=== PATIENT | female | born 1940 | race Caucasian/White ===

== ENCOUNTER → 2017-05-17 | Outpatient (CLI) | payer OTHER ==
[2017-05-17 16:11] LABS: ABSOLUTE NEUTROPHILS 5.3 thou/uL (1.4-8.2); BASOPHILS 0.7 % (0.0-2.0); EOSINOPHILS 0.9 % (0.0-3.0); HEMATOCRIT 38.9 % (37.0-47.0); HEMOGLOBIN 13.3 gm/dL (12.0-15.0); LYMPHOCYTES 24.7 % (24.0-44.0); MANUAL DIFF NO; MCH 31.1 pg (26.0-34.0); MCV 91.3 fL (80.0-100.0); MONOCYTES 8.3 % (1.0-8.0); PLATELET COUNT 292 thou/uL (150-400); POLYS 65.4 % (36.0-66.0); RBC 4.26 mil/uL (4.20-5.00); RDW 13.8 % (10.5-14.5); WBC 8.1 thou/uL (4.0-11.0)
[2017-05-17 16:23] LABS: ALBUMIN 4.4 g/dL (3.4-5.0); ALKALINE PHOSPHATASE 76 U/L (46-116); ANION GAP 12 mmol/L (7-16); BUN 39 mg/dL (7-18); CHLORIDE 102 mmol/L (98-107); CHOLESTEROL 193 mg/dL (<200); CO2 25 mmol/L (21-32); CREATININE 1.4 mg/dL (0.6-1.0); GLUCOSE 105 mg/dL (74-106); HDL CHOLESTEROL 68 mg/dL (>40); LDL CHOLESTEROL 93 mg/dL (<100); POTASSIUM 4.5 mmol/L (3.5-5.1); SGOT 17 U/L (15-37); SGPT 31 U/L (30-65); SODIUM 139 mmol/L (136-145); TC:HDL 2.8 Ratio (Not establshd); TOTAL PROTEIN 8.4 g/dL (6.4-8.2); TRIGLYCERIDE 161 mg/dL (<150); VLDL 32 mg/dL (<40)
[2017-05-18 04:07] LABS: GLYCOHEMOGLOBIN (HGB A1C) 5.7 % (4.8-5.6)
== END ==
LOC: LAB 15:10
PROVIDERS: Nurse Practitioner Gerontology
DX: I10 Essential (primary) hypertension (principal); E11.9 Type 2 diabetes mellitus without complications; E78.5 Hyperlipidemia, unspecified; F41.9 Anxiety disorder, unspecified; R63.5 Abnormal weight gain

== ENCOUNTER → 2017-10-14 | Outpatient (CLI) | payer OTHER | LOC: SEN 09:11 → RAD 10:09 → SEN 10:09 | DX: I77.810 Thoracic aortic ectasia (principal); J18.9 Pneumonia, unspecified organism ==

== ENCOUNTER → 2018-07-27 | Outpatient (CLI) | payer OTHER ==
[~2018-07-27] MED LIST: CIPRO250 M1 PO; LIPITOR 20 MG T20 M1 PO; MAGOX 400400 MG PO; PRILOSEC 20 MG20 MG PO; SPIRONOLACTONE25 M1 PO; XANAX 0.5 MG0.5 MG PO
[2018-07-27 11:09] LABS: URINE BLOOD NEGATIVE (Negative); URINE CLARITY CLEAR; URINE COLOR YELLOW; URINE GLUCOSE-RANDOM* NEGATIVE (Negative); URINE KETONES NEGATIVE (Negative); URINE LEUKOCYTES-REFLEX NEGATIVE (Negative); URINE NITRITE-REFLEX NEGATIVE (Negative); URINE PROTEIN (DIPSTICK) NEGATIVE (Negative); URINE SPECIFIC GRAVITY 1.025 (1.005-1.035); URINE UROBILINOGEN 0.2 E.U./dl (0.2-1.0)
[2018-07-27 11:12] LABS: ICTOTEST (BILI CONFIRMATORY) Negative (Negative); URINE BILIRUBIN NEGATIVE (Negative)
== END ==
LOC: SEN 10:43
PROVIDERS: Nurse Practitioner Family
DX: N39.0 Urinary tract infection, site not specified (principal)

== ENCOUNTER → 2018-07-29 | Outpatient (CLI) | payer OTHER ==
[2018-07-29 14:21] VITALS: BP 139/66
== END ==
LOC: SEN 08:12
DX: Z09 Encounter for follow-up examination after completed treatment for conditions other than malignant neoplasm (principal); R30.9 Painful micturition, unspecified; I10 Essential (primary) hypertension; M81.0 Age-related osteoporosis without current pathological fracture

== ENCOUNTER → 2018-10-28 | Outpatient (CLI) | payer OTHER | LOC: RAD 10:59 | DX: Z12.31 Encounter for screening mammogram for malignant neoplasm of breast (principal) ==

== ENCOUNTER → 2019-02-20 | Outpatient (CLI) | payer OTHER | LOC: SEN 08:37 | DX: Z76.0 Encounter for issue of repeat prescription (principal); R03.0 Elevated blood-pressure reading, without diagnosis of hypertension; E83.42 Hypomagnesemia; E78.5 Hyperlipidemia, unspecified; M81.0 Age-related osteoporosis without current pathological fracture; K21.9 Gastro-esophageal reflux disease without esophagitis; E78.00 Pure hypercholesterolemia, unspecified; I10 Essential (primary) hypertension; Z79.899 Other long term (current) drug therapy; Z87.891 Personal history of nicotine dependence ==

== ENCOUNTER → 2019-02-22 | Outpatient (CLI) | payer OTHER | LOC: NUC 09:47 | DX: M81.0 Age-related osteoporosis without current pathological fracture (principal); M85.89 Other specified disorders of bone density and structure, multiple sites; Z78.0 Asymptomatic menopausal state ==

== ENCOUNTER → 2019-03-20 | Outpatient (CLI) | payer OTHER | LOC: SEN 10-27 09:56 | DX: Z71.2 Person consulting for explanation of examination or test findings (principal); I10 Essential (primary) hypertension; E78.1 Pure hyperglyceridemia; M85.80 Other specified disorders of bone density and structure, unspecified site; K22.70 Barrett's esophagus without dysplasia; E78.00 Pure hypercholesterolemia, unspecified; K21.9 Gastro-esophageal reflux disease without esophagitis; Z87.891 Personal history of nicotine dependence ==

== ENCOUNTER → 2019-10-20 | Outpatient (CLI) | payer OTHER | LOC: RAD 10:53 | DX: Z12.31 Encounter for screening mammogram for malignant neoplasm of breast (principal) ==

== ENCOUNTER 2020-03-17 15:09 | Inpatient (IN) | payer OTHER ==
[~2020-03-17] VITALS: Ht 162.6 cm; Wt 80.7 kg
[2020-03-17 15:20] VITALS: BP 125/79
[2020-03-17 16:16] LABS: ABSOLUTE NEUTROPHILS 9.9 thou/uL (1.4-8.2); BASOPHILS 0.2 % (0.0-2.0); EOSINOPHILS 0.2 % (0.0-3.0); HEMATOCRIT 39.4 % (37.0-47.0); HEMOGLOBIN 13.3 gm/dL (12.0-15.0); LYMPHOCYTES 13.1 % (24.0-44.0); MCHC 33.8 g/dL (28.0-37.0); MCV 94.6 fL (80.0-100.0); MONOCYTES 9.7 % (1.0-8.0); PLATELET COUNT 523 thou/uL (150-400); POLYS 76.8 % (36.0-66.0); RBC 4.16 mil/uL (4.20-5.00); RDW 13.5 % (10.5-14.5); WBC 12.9 thou/uL (4.0-11.0)
[2020-03-17 16:22] LABS: ANION GAP 12 mmol/L (7-16); BUN 35 mg/dL (7-18); CALCIUM 8.9 mg/dL (8.5-10.1); CHLORIDE 96 mmol/L (98-107); CO2 24 mmol/L (21-32); CREATININE 1.2 mg/dL (0.6-1.0); GLUCOSE 138 mg/dL (74-106); POTASSIUM 3.5 mmol/L (3.5-5.1); SODIUM 132 mmol/L (136-145)
[2020-03-17 16:32] LABS: ALBUMIN 3.2 g/dL (3.4-5.0); LIPASE 160 U/L (73-393); MAGNESIUM 1.6 mg/dL (1.8-2.4); SGOT 25 U/L (15-37); SGPT 46 U/L (30-65); TOTAL BILIRUBIN 1.4 mg/dL (<0.1-1.0); TOTAL PROTEIN 6.7 g/dL (6.4-8.2); TROPONIN-I <0.06 ng/mL (<0.06)
[2020-03-17] MEDS ORDERED: ROSUVASTATIN CA10 MG PO (17:41)
[2020-03-17] MEDS ORDERED: ZESTRIL40 MG PO (17:42)
[2020-03-17 19:35] VITALS: BP 130/56
[2020-03-17 20:03] LABS: URINE BILIRUBIN NEGATIVE (Negative); URINE BLOOD 1+ (Negative); URINE CLARITY SL CLOUDY; URINE COLOR YELLOW; URINE GLUCOSE-RANDOM* NEGATIVE (Negative); URINE KETONES TRACE (Negative); URINE PROTEIN (DIPSTICK) NEGATIVE (Negative); URINE SPECIFIC GRAVITY 1.025 (1.005-1.035)
[2020-03-17 20:09] LABS: URINE LEUKOCYTES-REFLEX 1+ (Negative); URINE NITRITE-REFLEX POSITIVE (Negative)
[2020-03-17 20:11] LABS: BACTERIA-REFLEX >30 Many /HPF (None Seen); CASTS None Seen /LPF (None Seen); CRYSTALS None Seen /LPF (None Seen); MUCUS 0-3 Light strn/LPF (None Seen); SQUAMOUS 0-3 Few /LPF (0-3); URINE RBC 3-10 Few /HPF (0-2)
[2020-03-17 20:20] VITALS: BP 140/73
[2020-03-17 22:07] VITALS: BP 107/61
--- NOTE | 2020-03-18 02:43 | NUR ---
PT ARRIVED ON THE UNIT FROM ER @2200 A&OX4. HAS POOR APPETITE, DEHYDRATED AND HAS BEEN EATING POORLY FOR WEEKS. IV INTACT AND FLIUDS INFUISING. ADMISSION DONE AND PT ORIENTED TO THE UNIT. MILD ABDOMINAL DISCOMFORT BUT DENIES PAIN. PT NPO AFTER MIDNIGHT. CALL LIGHT IN REACH AND WILL CONT TO MONITOR TILL EOS.
[2020-03-18 03:40] VITALS: BP 133/63
[2020-03-18 06:01] LABS: HEMATOCRIT 33.9 % (37.0-47.0); HEMOGLOBIN 11.6 gm/dL (12.0-15.0); MCH 32.7 pg (26.0-34.0); MCHC 34.2 g/dL (28.0-37.0); MCV 95.6 fL (80.0-100.0); RBC 3.55 mil/uL (4.20-5.00); RDW 13.5 % (10.5-14.5); WBC 9.5 thou/uL (4.0-11.0)
[2020-03-18 06:24] LABS: CHOLESTEROL 137 mg/dL (<200); HDL CHOLESTEROL 31 mg/dL (>40); LDL CHOLESTEROL 82 mg/dL (<100); TC:HDL 4.4 Ratio (Not establshd); TRIGLYCERIDE 124 mg/dL (<150); VLDL 25 mg/dL (<40)
[2020-03-18 06:25] LABS: SERUM ASSESSMENT Clear
[2020-03-18 07:56] VITALS: BP 130/71
--- NOTE | 2020-03-18 08:39 | EKG ---
[facility] [place] [address] ELECTROCARDIOGRAM REPORT Name: LASHANDA PATEL Room #: 434-P ADM IN M.R.#: [id number] Admission: 03/17/20 Attend Phys: Pastor Johnson MD Discharge: Date of : 40 Report #: [id number] THIS REPORT FOR: cc: Stella Velásquez DNP, Mary E. DNP Lundgren, Craig H. MD [facility] ~ THIS REPORT FOR: //name// [facility] ED Test Date: 2020-03-17 Test Time: 15:23:18 Pat Name: LASHANDA PATEL Department: Room: 434 Gender: F Principal Secretary: JAEL : 1940 Requested By: Glenda López Order Number: [id number] MD: Moisés Marie Measurements Intervals [place] Rate: 93 P: 52 CT: 166 QRS: 9 QRSD: 80 T: 127 QT: 358 QTc: 446 Interpretive Statements Sinus rhythm Abnormal R-wave progression, early transition Nonspecific ST segment abnormality Compared to ECG 02/25/2006 10:17:07 ST segment abnormality is more pronounced Sinus bradycardia no longer present Electronically Signed On 03-18-2020 8:38:03 CDT by Moisés Marie [email or web address] <ELECTRONICALLY SIGNED> By: Moisés Marie MD, [facility] 03/18/20 0838 1523 1523 Moisés Marie MD, FAC /EPI
[2020-03-18 10:57] LABS: CALCIUM 8.6 mg/dL (8.5-10.1); CREATININE 1.1 mg/dL (0.6-1.0); POTASSIUM 3.9 mmol/L (3.5-5.1)
--- NOTE | 2020-03-18 11:40 | NUR ---
chart review. cm visited with renee via phone call. she is a & o x 3, preferrs going by conrado and she is able to make her needs know. she was just visiting with romero CASAREZ with GI " oh i hope she comes back soon, she is so nice and easy to talk to. she cares"/conrado. intro to cm, dcp and transition of care ie hh or rehab. pt reported " guess going to get few more test then go home, live alone 1st floor apartment, if have to go outside use elevator to the garage and go out that way. do not drive, take bus or friend drive me some time. most walk. no equip. independent when feeling ok. cook little stuff, laundry room on the same floor. no hh or rehab in past. sandie i guess is who you call if needing somethings, she the one that found me. no dpoa or health care directive and no interested. thank you"/conrado. will cont following as needed for dc needs.
--- NOTE | 2020-03-18 13:30 | NUR ---
ASSUMED CARE OF THE PT AT 0700. PT IS NOT A FALL RISK. PT C/O NOT GETTING THE CORRECT POC INFORMATION. L AC IV DRY AND INTACT. PT IS BS, SEE EMAR. PT WILL HAVE PROCEDURE TOMORROW, SEE SERVANDO, PT TO BE NPO AFTER MIDNIGHT. PT REFUSED SCD'S. LAST BM 03/17. CALL LIGHT ISM WITHIN REACH AND BED IS IN THE LOWEST POSITION. WILL CONTINUE TO MONITOR THE PT.
[2020-03-18 19:20] VITALS: BP 117/58
--- NOTE | 2020-03-18 23:37 | NUR ---
ASSESSED AT START OF SHIFT. PT RESTING IN BED. IV INTACT AND FLUIDS INFUISING. PT ADLIB TO THE BATHROOM. ON CLEAR LIQUIDS AND NPO AFTER MIDNIGHT FOR EGD AND COLONOSCOPY TOMORROW. MIRALAX ADMINISTERED. COVID RESULT NEGATIVE. CALL LIGHT IN REACH AND WILL CONT TO MONITOR TILL EOS.
[2020-03-19 03:25] VITALS: BP 120/64
[2020-03-19 09:07] VITALS: BP 139/58
[2020-03-19 15:00] VITALS: BP 123/63
--- NOTE | 2020-03-19 16:48 | NUR ---
PT NPO THIS AM FOR EGD AND COLONOSCOPY. PT RETURNED AROUND 1400 ALERT AND IN NO DISCOMFORT. CALM AND COOPERATIVE THIS SHIFT. IV ANTIBIOTICS FOR ECOLI UTI. STARTED ON PROTONIX FOR ESOP ULCER. AMBULATES TO THE BR INDEPENDENTLY.
[2020-03-19 19:25] VITALS: BP 113/53
--- NOTE | 2020-03-20 01:02 | NUR ---
ASSESSED AT START OF SHIFT, PT RESTING COMFORTABLY DENIES PAIN, N/V. IV INTACT ABX AND FLUIDS INFUISING. NIGHT TIME XANAX GIVEN. PT UP AD STEFANY TO THE BATHROOM. CALL LIGHT IN REACH AND WILL CONT TO MONITOR
[2020-03-20 03:20] VITALS: BP 189/64
--- NOTE | 2020-03-20 07:43 | NUR ---
PATIENT RESTING IN BED STATES NO PAIN AT THIS TIME. PT IS WORRIED ABOUT WHERE SHE IS DISCHARGING TO. THIS NURSE WILL CHECK WITH ASSISTANT DRAFTER.
[2020-03-20 08:07] VITALS: BP 126/52
[2020-03-20] MEDS ORDERED: B-12500 MCG PO (12:59)
[2020-03-20] MEDS ORDERED: AUGMENTIN 875-1 EACH PO (12:59)
[2020-03-20] MEDS ORDERED: ALPRAZOLAM 0.50.5 M1 PO (12:59)
[2020-03-20] MEDS ORDERED: PANTOPRAZOLE SO40 M1 PO (12:59)
[2020-03-20 13:05] VITALS: BP 126/52
[2020-03-20 13:23] VITALS: BP 126/52
[2020-03-20 13:28] VITALS: BP 126/52
--- NOTE | 2020-03-20 13:35 | NUR ---
CM FOLLOWED UP WITH PT THIS AM. CM SPOKE WITH PT REGARDING DC PLANNING. SPOKE ABOUT SKILLED POST ACUTE VS HOME WITH HOME HEALTH. PT HAD DISCHARGED PT 03/18 INDICATING NO DEFICITS. PT INDICATED SHE WOULD PEFER TO DISCHARGE HOME WITH HOME HEALTH SERVICES. PT INDICATED NO PREFERENCE IN PROVIDER. WAS AGREEABLE WITH REFERRAL BEING SENT TO [facility]. [facility] CAN ACCEPT. CARE TEAM INDICATED PT IS MEDICALLY STABLE TO DC HOME THIS DAY. PT WAS GIVEN CAB VOUCHER. [facility] TO CONTACT PT TO ARRANGE INITIAL VISIT. NO OTHER CM INTERVENTION INDICATED. CASE CLOSED.
--- NOTE | 2020-03-20 14:19 | NUR ---
DISCHARGE PAPERS GONE OVER SIGNED AND COPY IN CHART. IV ACSESS DCD. RX'S FILLED AT [facility] FOR PATIENT. PT TAKEN TO ER/ SECURITY AREA SO CAB COULD BE CALLED.PATIENT WAS GIVEN CAB VOUCHER. ALL BELONGINGS PACKED AND TAKEN WITH PATIENT. NO PAIN OR RESP DISTRESS AT TIME OF DISCHARGE.
--- NOTE | 2020-03-20 16:10 | P ---
[facility] [place] [address] PROCEDURE REPORT Name: LASHANDA PATEL Room #: 434-P [facility] IN M.R.#: [id number] Admission: 03/17/20 Attend Phys: Pastor Johnson MD Discharge: 03/20/20 Date of : 40 Report #: [id number] THIS REPORT FOR: cc: Stella Velásquez DNP, Mary E. DNP Thesing, John A. MD ~ CC: Pastor Velásquez [facility] INPATIENT UPPER ENDOSCOPY BRIEF HISTORY: The patient is a 79-year-old woman with a history of Gonsalez's esophagus. She has had nausea and vomiting. She stopped her PPI several months ago. She has had weight loss and has been eating poorly. PREOPERATIVE DIAGNOSES: Nausea, vomiting, weight loss. POSTOPERATIVE DIAGNOSES: 1. Severe ulceration of the distal esophagus. 2. Moderate sliding type hiatus hernia. 3. Diffuse gastritis. MEDICATIONS: Deep sedation with propofol per Anesthesia. SPECIMENS: 1. Biopsies of gastritis. 2. Biopsies of esophageal ulcers. ESTIMATED BLOOD LOSS: 3 mL. PROCEDURE: EGD with biopsy. FINDINGS: Prior to propofol sedation, procedure of upper endoscopy discussed with the patient as well as potential risks and its complications. The patient understands and desires to proceed. DESCRIPTION OF PROCEDURE: With the patient in left lateral decubitus position, the Olympus video endoscope was inserted in the cervical esophagus under direct vision without difficulty. Examination of this organ through its entire length revealed normal esophageal mucosa in the proximal esophagus distally, involving specifically the distal 10-12 cm of the esophagus, there was extensive circumferential ulceration with white thick exudate. Essentially, there was no mucosa in the distal esophagus. No mass lesions were seen. She has a history of Gonsalez's, but to be honest, there was so much ulceration, we could not appreciate whether Gonsalez mucosa was or was not present. No mass lesions were seen. Multiple biopsies were obtained. The scope was advanced and she has a [facility] [address] [place] [address] PROCEDURE REPORT Name: LASHANDA PATEL Room #: 434-P [facility] IN [facility].#: [id number] Admission: 03/17/20 Attend Phys: Pastor Johnson MD Discharge: 03/20/20 Date of : 40 Report #: [id number] moderate sized sliding type hiatus hernia. Unfortunately, she did not hold the air well and we could not fully distend the hernia, but within these limitations, the mucosa was within normal limits. The scope was advanced fully into the distal stomach, was examined on end view as well as retroflexed views. There was a pattern of diffuse gastritis. No ulcers or erosions were seen. Upon retroflexion, no mass lesions were seen. The pylorus, duodenal bulb and post-coronary sweep were inspected and noted to be unremarkable. At that point, the scope was slowly withdrawn and careful circumferential views confirmed the above finding. Biopsies obtained of the gastritis as well as esophageal ulcer. The patient tolerated the procedure well. DISPOSITION: The patient with extensive ulceration of the esophagus. She stopped her proton pump inhibitor. We will discuss further with her. We will have her take pantoprazole 40 mg twice daily. We will follow up on biopsies. She should have a repeat endoscopy in about 12 weeks after healing esophagitis to further evaluate for Gonsalez's and neoplasia of the esophagus. Proceed with colonoscopy at this time. <ELECTRONICALLY SIGNED> By: Bryon Nugent MD 03/20/20 1610 1218 1247 Bryon Nugent MD /nt
--- NOTE | 2020-03-20 16:10 | P ---
[facility] [place] [address] PROCEDURE REPORT Name: LASHANDA PATEL Room #: 434-P [facility] IN M.R.#: [id number] Admission: 03/17/20 Attend Phys: Pastor Johnson MD Discharge: 03/20/20 Date of : 40 Report #: [id number] THIS REPORT FOR: cc: Stella Velásquez DNP, Mary E. DNP Thesing, John A. MD ~ CC: Pastor Velásquez FALL INTERN DATE OF SERVICE: 03/19/2020 INPATIENT COLONOSCOPY REPORT BRIEF HISTORY: The patient is a 79-year-old woman who presented with generalized weakness, abdominal pain, weight loss. She had a CT, which reveals evidence of a large cavitary lesion along the sigmoid colon. It is not clear whether or not this is a neoplastic or inflammatory process. She has a benign abdomen. Colonoscopy was recommended. PREOPERATIVE DIAGNOSIS: Abnormal CT of the colon associated weight loss. POSTOPERATIVE DIAGNOSES: 1. Diminutive polyp, 70 cm. 2. Patchy areas of diverticulitis, sigmoid colon. 3. Diverticulosis coli, sigmoid colon and descending colon. MEDICATIONS: Deep sedation with propofol per anesthesia. SPECIMEN: Polyp from 70 cm. ESTIMATED BLOOD LOSS: 3 mL. PROCEDURE: Colonoscopy to cecum and terminal ileum with snare polypectomy. FINDINGS: Prior to propofol sedation, procedure of colonoscopy discussed with the patient as well as potential risks and its complications. She indicates she understands and desires to proceed. DESCRIPTION OF PROCEDURE: With the patient in left lateral decubitus position, the Olympus video colonoscope was introduced into the rectum, advanced under direct vision to the cecum. Done with minimal difficulty. Cecum was identified by the ileocecal valve and the appendiceal orifice. I was able to visualize the distal segment of terminal ileum, which was inspected and noted to be unremarkable. At that point, the scope was slowly withdrawn and careful circumferential views were obtained. There were some limitations of prep, [facility] [address] [place] [address] PROCEDURE REPORT Name: LASHANDA PATEL Room #: 434-P [facility] IN [facility].#: [id number] Admission: 03/17/20 Attend Phys: Pastor Johnson MD Discharge: 03/20/20 Date of : 40 Report #: [id number] scattered throughout the colon. Areas had to be irrigated, lavaged and suctioned to clear up this material. No abnormalities were noted until the left colon was reached, at which point there was noted to be diverticulosis coli to a moderate degree. No further abnormalities were noted until we got into the sigmoid colon. In the mid sigmoid colon, there was moderately severe diverticular disease. There was some luminal narrowing, but no stricturing. In addition, there were at least 2 diverticula with inflammatory changes and one with purulent material. Extensive diverticulitis was not seen. Also, no neoplastic lesions were seen in the sigmoid colon. A cavitary lesion was not seen. It is possible there could be a giant diverticulum or an abscess cavity, which drains to one of the diverticula, but that was not obvious at this time. The scope was further withdrawn, no additional abnormalities were seen. Scope was withdrawn. The patient tolerated the procedure well. DISPOSITION: She had a small polyp identified and removed by snare polypectomy at 70 cm. We will follow up on the pathology. If the polyp is an adenoma, she will return in 5 years; if it is not an adenoma, then 10 years would be indicated. She clearly does have evidence of diverticulitis, but not extensive colonoscopy. It is noted she is on Zosyn at this point in time and would continue at this point. As far as the cavitary lesion, that cannot be clearly identified endoscopically today. Several possibilities include a cavitary lesion related to some other structure within the pelvis. She could have a giant diverticulum, which is not noted endoscopically because the diverticulum feeding that area is not large enough to allow visualization with the scope. It is also possible she could have had a diverticular abscess, which is potentially drained through diverticulum, but is not obvious endoscopic at this point in time. At this point, would continue Zosyn. We will review CT with radiologist and confirmed with endoscopic findings. She will certainly need further evaluation, potentially repeating the CT. Also, repeating a CT with contrast instilled in the distal colon may be helpful as well. <ELECTRONICALLY SIGNED> By: Bryon Nugent MD 03/20/20 1610 1254 1313 Bryon Nugent MD /nt
--- NOTE | 2020-03-21 13:08 | PATH ---
[facility] [place] [address] PATHOLOGY RPT PROCEDURE Name: ZONIA HERNANDEZ Room #: 434-P [facility] IN M.R.#: [id number] Admission: 03/17/20 Date of : 40 Discharge: 03/20/20 Report #: [id number] Path Case #: [id number] [facility] Accession Number: [id number] . 01 Material submitted: . PART A: stomach - BIOPSY OF GASTRITIS PART B: esophagus - BIOPSY OF ESOPHAGEAL ULCER, HX OF RODAS'S PART C: colon - POLYP AT 70CM . 01 Clinical history: . Pre-op diagnosis: Abnormal CT; nausea; vomiting Post-op diagnosis: Weight loss; history of Rodas's esophagus . 02 Diagnosis: A. Gastric mucosa, gastritis, rule out H. pylori, endoscopic biopsy: - Mild chronic inflammation. - Negative for intestinal metaplasia or atrophy. - Negative for Helicobacter pylori (properly-controlled immunohistochemical stain performed). . B. Gastroesophageal mucosa, esophageal ulcer, history of Rodas's, endoscopic biopsy: - Multiple fragments of ulcer and granulation tissue. 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 - Negative for dysplasia or malignancy. - Focal squamous mucosa present showing mild esophagitis. . C. Polyp, at 70 cm, endoscopic biopsy: - Tubular adenoma. - Negative for high grade dysplasia. . (IUV:mml; 03/21/2020) [facility] 03/21/2020 1130 Local . 02 Electronically signed: . Queta Vera MD, Pathologist NPI- [id number] . 01 Gross description: . A. The specimen is received in formalin, labeled "Zonia Hernandez, biopsy of gastritis". Received are two segments of pale gonsales soft tissue ranging in size from 0.4 to 0.6 cm in maximum dimensions. The specimen is submitted entirely in cassette A1. . B. The specimen is received in formalin, labeled "Zonia Hernandez, biopsy of esophageal ulcer". Received are eight segments of pale gonsales soft tissue [address] [address] PATHOLOGY RPT PROCEDURE Name: ZONIA HERNANDEZ Room #: 434-P DIS IN M.R.#: [id number] Admission: 03/17/20 Date of : 40 Discharge: 03/20/20 Report #: [id number] Path Case #: [id number] ranging in size from 0.3 to 0.6 cm in maximum dimensions. The specimen is submitted entirely in cassette B1. . C. The specimen is received in formalin, labeled "Zonia Stepien, polyp at 70 cm". Received is a segment of pale gonsales soft tissue measuring 0.7 cm in maximum dimensions. The specimen is submitted entirely in cassette C1. (CAA; 03/20/2020) QAC/QAC 03/20/2020 1257 Local . 02 Pathologist provided ICD-10: K29.50, K22.70, D12.6 . 02 CPT . 198389, 699626, 150321, V79061 Specimen Comment: A courtesy copy of this report has been sent to [phone] Specimen Comment: [phone], Specimen Comment: Report sent to ,DR PATEL / DR MENJIVAR Performed at: [address], [place] [id number] MD Philip Khoury MD Phone: [phone] Performed at: [address] [id number] MD Queta Vera MD Phone: [phone]
== END 2020-03-20 14:26 | disposition home health service (06) | DRG 391 ==
LOC: ER 15:09 → 4S 18:31 → EROBS 18:31 → 4S 22:08
PROVIDERS: Emergency Medicine Emergency Medical Services; Nurse Practitioner Family; ADMIT Hospitalist
PROC: 0DBE8ZZ Excision of Large Intestine, Via Natural or Artificial Opening Endoscopic (ICD-10-PCS; principal; 2020-03-19)
PROC: 0DB38ZX Excision of Lower Esophagus, Via Natural or Artificial Opening Endoscopic, Diagnostic (ICD-10-PCS; principal; 2020-03-19)
PROC: 0DB68ZX Excision of Stomach, Via Natural or Artificial Opening Endoscopic, Diagnostic (ICD-10-PCS; principal; 2020-03-19)
DX: K29.70 Gastritis, unspecified, without bleeding (principal); G93.41 Metabolic encephalopathy; N17.9 Acute kidney failure, unspecified; N39.0 Urinary tract infection, site not specified; K57.32 Diverticulitis of large intestine without perforation or abscess without bleeding; K57.30 Diverticulosis of large intestine without perforation or abscess without bleeding; K22.70 Barrett's esophagus without dysplasia; K21.9 Gastro-esophageal reflux disease without esophagitis; I10 Essential (primary) hypertension; K63.5 Polyp of colon; Z60.2 Problems related to living alone; F32.9 Major depressive disorder, single episode, unspecified; G47.00 Insomnia, unspecified; E53.8 Deficiency of other specified B group vitamins; F03.90 Unspecified dementia, unspecified severity, without behavioral disturbance, psychotic disturbance, mood disturbance, and anxiety; E78.5 Hyperlipidemia, unspecified; B96.20 Unspecified Escherichia coli [E. coli] as the cause of diseases classified elsewhere; F41.9 Anxiety disorder, unspecified; M81.0 Age-related osteoporosis without current pathological fracture; E83.42 Hypomagnesemia; E86.0 Dehydration; K44.9 Diaphragmatic hernia without obstruction or gangrene; R63.4 Abnormal weight loss; Z79.899 Other long term (current) drug therapy; Z87.891 Personal history of nicotine dependence; Z68.30 Body mass index [BMI] 30.0-30.9, adult; Z03.818 Encounter for observation for suspected exposure to other biological agents ruled out
CPT/HCPCS: 10195; 62110; 62900; 70005

== ENCOUNTER 2020-04-01 14:20 | Inpatient (IN) | payer OTHER ==
[~2020-04-01] VITALS: Ht 160 cm; Wt 83.5 kg
[~2020-04-01 14:20] MED LIST changes: +ALPRAZOLAM 0.50.5 M1 PO; +AUGMENTIN 875-1 EACH PO; +B-12500 MCG PO; +PANTOPRAZOLE SO40 M1 PO; +ROSUVASTATIN CA10 MG PO; +ZESTRIL40 MG PO
[2020-04-01 14:21] VITALS: BP 90/38
[2020-04-01 14:41] LABS: ABSOLUTE NEUTROPHILS 2.9 thou/uL (1.4-8.2); EOSINOPHILS 0.6 % (0.0-3.0); HEMATOCRIT 30.4 % (37.0-47.0); HEMOGLOBIN 10.4 gm/dL (12.0-15.0); LYMPHOCYTES 24.4 % (24.0-44.0); MCH 32.4 pg (26.0-34.0); MCHC 34.3 g/dL (28.0-37.0); MCV 94.5 fL (80.0-100.0); MONOCYTES 11.3 % (1.0-8.0); PLATELET COUNT 210 thou/uL (150-400); POLYS 62.7 % (36.0-66.0); RBC 3.22 mil/uL (4.20-5.00); RDW 13.6 % (10.5-14.5); WBC 4.6 thou/uL (4.0-11.0)
[2020-04-01 15:00] LABS: ALBUMIN 2.9 g/dL (3.4-5.0); ANION GAP 11 mmol/L (7-16); BUN 11 mg/dL (7-18); CHLORIDE 101 mmol/L (98-107); CO2 29 mmol/L (21-32); CREATININE 1.8 mg/dL (0.6-1.0); GLUCOSE 115 mg/dL (74-106); LIPASE 116 U/L (73-393); SGOT 22 U/L (15-37); SGPT 28 U/L (30-65); SODIUM 141 mmol/L (136-145); TOTAL BILIRUBIN 1.1 mg/dL (<0.1-1.0); TOTAL PROTEIN 6.1 g/dL (6.4-8.2); TROPONIN-I <0.06 ng/mL (<0.06)
[2020-04-01 15:02] LABS: POTASSIUM 2.8 mmol/L (3.5-5.1)
[2020-04-01 16:03] LABS: URINE BILIRUBIN NEGATIVE (Negative); URINE BLOOD NEGATIVE (Negative); URINE CLARITY CLEAR; URINE COLOR YELLOW; URINE GLUCOSE-RANDOM* NEGATIVE (Negative); URINE KETONES NEGATIVE (Negative); URINE LEUKOCYTES-REFLEX NEGATIVE (Negative); URINE NITRITE-REFLEX NEGATIVE (Negative); URINE PROTEIN (DIPSTICK) NEGATIVE (Negative); URINE SPECIFIC GRAVITY <= 1.005 (1.005-1.035); URINE UROBILINOGEN 0.2 E.U./dl (0.2-1.0)
[2020-04-01 16:12] LABS: MAGNESIUM 0.9 mg/dL (1.8-2.4)
[2020-04-01 16:25] VITALS: BP 143/56
[2020-04-01 16:27] LABS: PHOSPHORUS 2.2 mg/dL (2.5-4.9)
[2020-04-01 16:47] VITALS: BP 134/65
[2020-04-01 16:50] VITALS: BP 134/68
--- NOTE | 2020-04-01 18:37 | NUR ---
ASSUMMED PT CARE AT APPROXIMATELY 1650. PT A&O X4. ASSESSMENT CHARTED. FALL PRECAUTIONS IN PLACE. PT DENIES HAVING CHEST PAIN. PT STATED SHE WAS ANXIOUS. PT RECEIVED ANTI-ANXIETY MED. PT STATED MED DECREASED ANXIETY. ADMISSION COMPLETE. PT AMBULATES C ASSIST. PT KEEPS RE-STATING "I AM A MESS." EDUCATED PT ABOUT POC. PT STATED UNDERSTANDING AND DENIED HAVING FURTHER QUESTIONS. VITAL SIGNS STABLE. ENCOURAGED PT TO EAT AND DRINK FLUIDS FOR DINNER. PT STATED SHE DOES NOT HAVE FOOD AT HOME. PT STATED SHE DOES NOT REMEMBER WHEN THE LAST TIME SHE ATE A MEAL. PT ALSO STATED SHE DOES NOT HAVE AN APPETITE. PT COMFORTABLE IN BED. PT DENIES HAVING FURTHER CONCERNS.
[2020-04-01 20:14] VITALS: BP 106/55
[2020-04-02 00:28] VITALS: BP 101/46
[2020-04-02 04:03] VITALS: BP 100/52
[2020-04-02 05:08] LABS: ALBUMIN 2.4 g/dL (3.4-5.0); CALCIUM 7.4 mg/dL (8.5-10.1); CREATININE 1.5 mg/dL (0.6-1.0); MAGNESIUM 1.9 mg/dL (1.8-2.4); PHOSPHORUS 1.6 mg/dL (2.5-4.9); TOTAL BILIRUBIN 0.8 mg/dL (<0.1-1.0); TOTAL PROTEIN 5.2 g/dL (6.4-8.2)
--- NOTE | 2020-04-02 05:16 | NUR ---
PT A&O X4 ABLE TO MAKE NEEDS KNOWN. DENIES PAIN. SBA WITH TRANSFERS. PT HAD ABNORMAL LABS DURING THE PREVIOUS SHIFT REPLACED AND RECHECKED AT HS K 4.0, MG 0.8. PT CALLS APPROPRIATELY. NEW ORDERS OVERNIGHT FOR AM ECHO, AKG AND ABD US. ALSO NEW ORDER FOR FECAL OCCULT. CONTINUES WITH SOFT BPS.
[2020-04-02 06:05] LABS: HEMATOCRIT 26.2 % (37.0-47.0); HEMOGLOBIN 8.9 gm/dL (12.0-15.0); MCH 32.6 pg (26.0-34.0); MCHC 34.2 g/dL (28.0-37.0); MCV 95.3 fL (80.0-100.0); PLATELET COUNT 188 thou/uL (150-400); RBC 2.74 mil/uL (4.20-5.00); RDW 13.9 % (10.5-14.5); WBC 3.8 thou/uL (4.0-11.0)
--- NOTE | 2020-04-02 08:02 | EKG ---
[facility] [place] [address] ELECTROCARDIOGRAM REPORT Name: LASHANDA PATEL Room #: 207-P ADM IN M.R.#: [id number] Admission: 04/01/20 Attend Phys: Kelli Gracia MD Discharge: Date of : 40 Report #: [id number] THIS REPORT FOR: cc: Stella Velásquez DNP, Mary E. DNP Lundgren, Craig H. MD [facility] ~ THIS REPORT FOR: //name// [facility] ED Test Date: 2020-04-01 Test Time: 14:32:08 Pat Name: LASHANDA PATEL Department: Room: [facility] Gender: F Wig Stylist: dwain : 1940 Requested By: Roya Theodore Order Number: [id number] MD: Moisés Marie Measurements Intervals [place] Rate: 71 P: 37 NE: 176 QRS: 21 QRSD: 83 T: 173 QT: 403 QTc: 438 Interpretive Statements Sinus rhythm Repol abnrm suggests ischemia, anterolateral Compared to ECG 03/17/2020 15:23:18 T wave abnormality is more pronounced Electronically Signed On 04-02-2020 8:00:11 CDT by Moisés Marie [email or web address] <ELECTRONICALLY SIGNED> By: Moisés Marie MD, [facility] 04/02/20 0800 1432 1432 Moisés Marie MD, [facility] /EPI
[2020-04-02 08:57] VITALS: BP 127/50
[2020-04-02 09:51] LABS: ABSOLUTE NEUTROPHILS 1.7 thou/uL (1.4-8.2)
[2020-04-02 09:55] LABS: ANISOCYTOSIS 1+
--- NOTE | 2020-04-02 10:52 | NUR ---
Spoke with patient by phone. She admits with weakness/syncope. Patient resides in independent apt. Recent hospital stay and dc 03/20 with [facility]. Patient reports she rec a suspecious phone call of someone wanting to sign her up for some service but then they did not call back. Patient reports she met Laura with GI and she plans to f/u with GI on outpatient basis. She does not want HH at dc. She reports she is aware she has not been making meals as she should but does not want anyone in her apt. Patient may benefit for therapy evals. casemgt following.
[2020-04-02 12:10] VITALS: BP 109/52
--- NOTE | 2020-04-02 14:36 | EKG ---
[facility] [place] [address] ELECTROCARDIOGRAM REPORT Name: LASHANDA PATEL Room #: 207-P ADM IN M.R.#: [id number] Admission: 04/01/20 Attend Phys: Kelli Gracia MD Discharge: Date of : 40 Report #: [id number] THIS REPORT FOR: cc: Stella Velásquez DNP, Mary E. DNP Couchonnal, Luis F. MD ~ THIS REPORT FOR: //name// [facility] Test Date: 2020-04-02 Test Time: 08:41:33 Pat Name: LASHANDA PATEL Department: Room: 207 P Gender: F Flight Attendant/Inflight Supervisor: LJ : 1940 Requested By: Kelli Gracia Order Number: [id number] MD: Michelet Sam Measurements Intervals [place] Rate: 73 P: 50 [place]: 167 QRS: 17 QRSD: 80 T: 159 QT: 387 QTc: 427 Interpretive Statements Sinus rhythm Repol abnrm suggests ischemia, anterolateral Compared to ECG 04/01/2020 14:32:08 No significant changes Electronically Signed On 04-02-2020 14:34:25 CDT by Michelet Sam [email or web address] <ELECTRONICALLY SIGNED> By: Michelet Sam MD 04/02/20 1434 0841 0841 Michelet Sam MD /EPI
[2020-04-02 16:10] VITALS: BP 111/55
--- NOTE | 2020-04-02 16:27 | 2DMMODE ---
[facility] [place] [address] 2 D/M-MODE ECHOCARDIOGRAM Name: LASHANDA PATEL Room #: 207-P ADM IN M.R.#: [id number] Admission: 04/01/20 Attend Phys: Kelli Gracia MD Discharge: Date of : 40 Report #: [id number] THIS REPORT FOR: cc: Stella Velásquez DNP, Mary E. DNP Lundgren, Craig H. MD [facility] ~ APPROVED REPORT Study performed: 04/02/2020 13:53:59 EXAM: Comprehensive 2D, Doppler, and color-flow Echocardiogram Patient Location: In-Patient Room #: 207 Status: routine BSA: 1.73 HR: 65 bpm BP: 109/52 mmHg Other Information Study Quality: Good Indications Near syncope, HTN, Severe hypo K, MG, PHOS 2D Dimensions RVDd: 22.03 mm IVSd: 10.97 (7-11mm) LVDd: 38.02 mm PWd: 11.06 (7-11mm) LVDs: 19.66 (25-40mm) Aortic Root: 31.77 mm Volumes Left Atrial Volume (Systole) Single Plane 4CH: 43.47 mL Single Plane 2CH: 53.41 mL LA ESV Index: 31.00 mL/m2 Aortic Valve AoV Peak Luis Enrique.: 1.44 m/s AO Peak Gr.: 9.24 mmHg LVOT Max P.34 mmHg LVOT Max V: 1.16 m/s Mitral Valve MV Peak Gr.: 3.50 mmHg [facility] [address] [place] [address] 2 D/M-MODE ECHOCARDIOGRAM Name: ANMOLLASHANDA SANTIAGO Room #: 207-P [facility] IN ..#: [id number] Admission: 04/01/20 Attend Phys: Kelli Gracia, Discharge: Date of : 40 Report #: [id number] MV Mean Gr.: 1.24 mmHg E/A Ratio: 0.8 MV Decel. Time: 234.65 ms MV E Max Luis Enrique.: 0.69 m/s MV A Luis Enrique.: 0.86 m/s MV Max Luis Enrique.: 0.94 m/s MV Mean Luis Enrique.: 0.51 m/s MV VTI: 262.46 mm IVRT: 83.04 ms Pulmonary Valve PV Peak Luis Enrique.: 0.92 m/s PV Peak Gr.: 3.37 mmHg Pulmonary Vein P Vein S: 0.69 m/s P Vein A: 0.34 m/s P Vein D: 0.48 m/s P Vein S/D Ratio: 1.44 Tricuspid Valve TR Peak Luis Enrique.: 2.26 m/s RAP Estimate: 5.00 mmHg TR Peak Gr.: 20.41 mmHg PA Pressure: 25.00 mmHg Left Ventricle The left ventricle is normal size. There is normal LV segmental wall motion. There is normal left ventricular wall thickness. The left ventricular systolic function is normal. The left ventricular ejection fraction is within the normal range. LVEF is 60%. Mild diastolic dysfunction is present (impaired relaxation pattern). Right Ventricle The right ventricle is normal size. The right ventricular systolic function is normal. Atria The left atrium size is normal. The right atrium size is normal. Aortic Valve The aortic valve is normal in structure. No aortic regurgitation is present. There is no aortic valvular stenosis. Mitral Valve The mitral valve is normal in structure. Trace mitral regurgitation. No evidence of mitral valve stenosis. [facility] [place] [address] 2 D/M-MODE ECHOCARDIOGRAM Name: LASHANDA PATEL Room #: 207-P ADM IN M.R.#: [id number] Admission: 04/01/20 Attend Phys: Kelli Gracia, Discharge: Date of : 40 Report #: [id number] Tricuspid Valve The tricuspid valve is normal in structure. Mild tricuspid regurgitation. Estimated pulmonary artery pressure of 25 mmHg. Pulmonic Valve The pulmonary valve is normal in structure. Mild pulmonic regurgitation. Great Vessels The aortic root is normal in size. The ascending aorta is normal in size. IVC is normal in size and collapses >50% with inspiration. Pericardium There is no pericardial effusion. <Conclusion> The left ventricular systolic function is normal. There is normal LV segmental wall motion. LVEF is 60%. Mild diastolic dysfunction The aortic valve is normal in structure. No aortic regurgitation or stenosis The mitral valve is normal in structure. Trace mitral regurgitation. Mild tricuspid regurgitation. Estimated pulmonary artery pressure of 25 mmHg. There is no pericardial effusion. <ELECTRONICALLY SIGNED> By: Moisés Marie MD, [facility] 04/02/20 1625 162 24 Moisés Marie MD, FACC /INF
--- NOTE | 2020-04-02 18:26 | NUR ---
Assumed care at shift change, alert and oriented x4 and forgetful. VSS and denies any discomfort. 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 Will continue with POC.
[2020-04-02 20:27] VITALS: BP 98/70
[2020-04-03] VITALS (8 sets, daily range): BP systolic 122–135; BP diastolic 53–69
--- NOTE | 2020-04-03 04:44 | NUR ---
ASSUMED PT CARE AT 1900, PT IS AWAKE, ALERET AND ORIENTEDX4, MAKES NEEDS KNOWN, SR ON THE MONITOR, ASSESSMENTS CHARTED, VSS ON ROOM AIR, RESTING IN BED, NO DISTRESS NOTED, WILL CONTINUE TO MONITOR
[2020-04-03] MEDS ORDERED: VITAMIN D21250 MC1 PO (12:43)
--- NOTE | 2020-04-03 15:54 | NUR ---
Patient to tx home with HH care. She prev did not answer phone for HH care and no machine to leave a message. They cont to try to see patient but unable. [facility] agreeable to service again. SP with patient at length of importance of patient responding to HH care. She reports she is so grateful [facility] sending RN to check on her she will respond to HH RN. She needs transport home verified address and plan 1600 transport home via [facility] [facility] no further needs
--- NOTE | 2020-04-03 16:40 | NUR ---
FAXED REFERRAL TO [facility] SPOKE WITH MOUNA IN INTAKE SHE RECEIVED REFERRAL AND CAN ACCEPT AT DC. FAXED DC ORDERS/SUMMARY MOUNA RECEIVED ORDERS AND WILL NOTIFY PT TIME OF VISITS.
--- NOTE | 2020-04-03 17:53 | NUR ---
ASSUMED CARE AT SHIFT CHANGE, ALERT AND ORIENTED X4 AND FORGETFUL. ASSESSMENT CHARTED, VSS AND SR ON THE MONITOR. DISCHARGE AND MEDICATION INSTRUCTIONS GIVEN TO PATIENT, AND PATIENT DISCAHRGED HOME.
== END 2020-04-03 17:56 | disposition home health service (06) | DRG 682 ==
LOC: ER 14:20 → 2N 15:37 → EROBS 15:37 → 2N 16:47
PROVIDERS: Internal Medicine; Nurse Practitioner Family; ADMIT Internal Medicine
DX: N17.9 Acute kidney failure, unspecified (principal); E43 Unspecified severe protein-calorie malnutrition; E83.42 Hypomagnesemia; E87.6 Hypokalemia; E53.8 Deficiency of other specified B group vitamins; F41.9 Anxiety disorder, unspecified; M81.0 Age-related osteoporosis without current pathological fracture; E86.0 Dehydration; K21.9 Gastro-esophageal reflux disease without esophagitis; G47.00 Insomnia, unspecified; F32.9 Major depressive disorder, single episode, unspecified; N18.3 Chronic kidney disease, stage 3 (moderate); D64.9 Anemia, unspecified; Z66 Do not resuscitate; R63.4 Abnormal weight loss; E78.5 Hyperlipidemia, unspecified; R19.7 Diarrhea, unspecified; Z60.2 Problems related to living alone; K22.70 Barrett's esophagus without dysplasia; K29.70 Gastritis, unspecified, without bleeding; R63.0 Anorexia; I12.9 Hypertensive chronic kidney disease with stage 1 through stage 4 chronic kidney disease, or unspecified chronic kidney disease; E83.39 Other disorders of phosphorus metabolism; Z87.891 Personal history of nicotine dependence; Z68.32 Body mass index [BMI] 32.0-32.9, adult; Z82.49 Family history of ischemic heart disease and other diseases of the circulatory system; Z79.899 Other long term (current) drug therapy
CPT/HCPCS: 10081

== ENCOUNTER 2020-12-02 14:35 | Emergency (ER) | payer OTHER ==
[~2020-12-02] VITALS: Ht 167.6 cm; Wt 63.5 kg
[~2020-12-02 14:35] MED LIST changes: +VITAMIN D21250 MC1 PO
[2020-12-02 14:58] LABS: HEMATOCRIT 39.1 % (37.0-47.0); HEMOGLOBIN 12.5 gm/dL (12.0-15.0); MCH 27.3 pg (26.0-34.0); MCHC 31.9 g/dL (28.0-37.0); MCV 85.8 fL (80.0-100.0); PLATELET COUNT 347 thou/uL (150-400); RBC 4.56 mil/uL (4.20-5.00); RDW 17.5 % (10.5-14.5); WBC 9.1 thou/uL (4.0-11.0)
[2020-12-02 15:11] LABS: CALCIUM 8.1 mg/dL (8.5-10.1); CREATININE 2.2 mg/dL (0.6-1.0)
[2020-12-02 15:17] LABS: ALBUMIN 3.3 g/dL (3.4-5.0); TOTAL BILIRUBIN 1.1 mg/dL (0.2-1.0)
--- NOTE | 2020-12-02 15:28 | EKG ---
[address] [address] ELECTROCARDIOGRAM REPORT Name: LASHANDA PATEL Room #: [facility].#: [id number] Admission: Attend Phys: Discharge: Date of : 40 Report #: [id number] [facility] ED Test Date: 2020-12-02 Test Time: 15:03:13 Pat Name: LASHANDA PATEL Department: Room: Gender: F Casing Tier: [facility] : 1940 Requested By: Chen Simons Order Number: [id number] MD: Michelet Sam Measurements Intervals [place] Rate: 86 P: 75 MO: 149 QRS: 13 QRSD: 87 T: 156 QT: 371 QTc: 444 Interpretive Statements Sinus rhythm Lateral ST changes similar to prior EKG Compared to ECG 04/02/2020 08:41:33 No significant changes Electronically Signed On 12-02-2020 15:28:41 SHIPPING PROCESSOR by Michelet Sam [email or web address] <ELECTRONICALLY SIGNED> By: Michelet Sam MD 12/02/20 1528 1503 1503 Michelet Sam MD /RALPH
[2020-12-02 15:32] LABS: ABSOLUTE NEUTROPHILS 7.5 thou/uL (1.4-8.2)
[2020-12-02 15:33] LABS: ANISOCYTOSIS 1+
[2020-12-02 20:40] VITALS: BP 108/54
== END 2020-12-02 20:45 | disposition short-term general hospital (02) ==
LOC: ER 14:35
PROVIDERS: Emergency Medicine
DX: E86.0 Dehydration (principal); K57.32 Diverticulitis of large intestine without perforation or abscess without bleeding; K63.1 Perforation of intestine (nontraumatic); E87.6 Hypokalemia; E83.42 Hypomagnesemia; R10.84 Generalized abdominal pain; I10 Essential (primary) hypertension; Z87.891 Personal history of nicotine dependence; Z79.899 Other long term (current) drug therapy

== ENCOUNTER 2021-02-14 21:48 | Inpatient (IN) | payer OTHER ==
[~2021-02-14] VITALS: Ht 162.6 cm; Wt 67.6 kg
[2021-02-14 22:19] VITALS: BP 152/60
[2021-02-14 22:57] LABS: ABSOLUTE NEUTROPHILS 2.7 thou/uL (1.4-8.2); BASOPHILS 1.3 % (0.0-2.0); EOSINOPHILS 1.3 % (0.0-3.0); HEMATOCRIT 26.3 % (37.0-47.0); HEMOGLOBIN 9.1 gm/dL (12.0-15.0); LYMPHOCYTES 28.8 % (24.0-44.0); MCHC 34.5 g/dL (28.0-37.0); MCV 95.5 fL (80.0-100.0); PLATELET COUNT 235 thou/uL (150-400); POLYS 58.6 % (36.0-66.0); RBC 2.75 mil/uL (4.20-5.00); RDW 14.9 % (10.5-14.5); WBC 4.6 thou/uL (4.0-11.0)
[2021-02-14 23:12] LABS: APTT 26.8 Seconds (24.5-32.8); INR 1.3
[2021-02-14 23:17] LABS: ALBUMIN 2.4 g/dL (3.4-5.0); ANION GAP 9 mmol/L (7-16); BUN 15 mg/dL (7-18); CHLORIDE 109 mmol/L (98-107); CO2 27 mmol/L (21-32); CREATININE 0.8 mg/dL (0.6-1.0); GLUCOSE 90 mg/dL (74-106); POTASSIUM 3.3 mmol/L (3.5-5.1); SGOT 17 U/L (15-37); SGPT 13 U/L (14-59); SODIUM 145 mmol/L (136-145); TOTAL BILIRUBIN 0.7 mg/dL (0.2-1.0); TOTAL PROTEIN 5.7 g/dL (6.4-8.2); TROPONIN-I <0.06 ng/mL (<0.06)
[2021-02-14 23:18] LABS: CALCIUM 5.6 mg/dL (8.5-10.1)
[2021-02-14 23:51] LABS: URINE BILIRUBIN NEGATIVE (Negative); URINE BLOOD NEGATIVE (Negative); URINE CLARITY CLOUDY; URINE COLOR YELLOW; URINE GLUCOSE-RANDOM* NEGATIVE (Negative); URINE KETONES NEGATIVE (Negative); URINE PROTEIN (DIPSTICK) TRACE (Negative); URINE UROBILINOGEN 0.2 E.U./dl (0.2-1.0)
[2021-02-14 23:52] LABS: URINE LEUKOCYTES-REFLEX 2+ (Negative); URINE NITRITE-REFLEX POSITIVE (Negative)
[2021-02-15] LABS: AMP/METHAMP Negative (Negative); BARBITURATES Negative (Negative); BENZODIAZEPINES POSITIVE (Negative); COCAINE Negative (Negative); METHADONE Negative (Negative); OPIATES Negative (Negative); PCP Negative (Negative)
[2021-02-15 00:22] LABS: SQUAMOUS 4-10 Moderate /LPF (0-3); WBC CLUMPS Few (None Seen)
[2021-02-15 00:23] LABS: BACTERIA-REFLEX >30 Many /HPF (None Seen); CASTS None Seen /LPF (None Seen); CRYSTALS None Seen /LPF (None Seen); MUCUS 0-3 Light strn/LPF (None Seen); URINE RBC 3-10 Few /HPF (0-2)
[2021-02-15 01:42] VITALS: BP 135/70
[2021-02-15 02:00] VITALS: BP 135/70
[2021-02-15 02:39] VITALS: BP 141/65
[2021-02-15 07:15] LABS: CREATININE 0.8 mg/dL (0.6-1.0); PHOSPHORUS 4.6 mg/dL (2.6-4.7)
[2021-02-15 07:16] VITALS: BP 130/66
--- NOTE | 2021-02-15 07:50 | NUR ---
Admission history and assessments completed. Careplan initiated. IVfluids infusing. High fall risks, fall precautions in place.
[2021-02-15 15:15] VITALS: BP 124/57
--- NOTE | 2021-02-15 17:25 | NUR ---
ASSUMED PATIENT CARE AT 0700. A/O X3. ANXIOUS. C/O HEADACHE. UP X1 TO BCS. 2+ BLE. PROGRESSING TOWARDS POC GOALS.
[2021-02-15 19:17] VITALS: BP 120/56
--- NOTE | 2021-02-16 02:29 | NUR ---
PT PROGRESSING TOWARDS D/C GOALS. VSS AFEBRILE. UNLABORED ON RA. SAT 99%. PT HAS BEEN APPROPRIATE . XANAX GIVEN FOR ANXIETY. NO S/S DISTRESS. BED DOOWN CALL LIGHT IN REACH. BED ALARM IS ON.
[2021-02-16 03:31] VITALS: BP 114/53
[2021-02-16 06:08] LABS: CALCIUM 6.4 mg/dL (8.5-10.1); CREATININE 0.7 mg/dL (0.6-1.0); MAGNESIUM 1.2 mg/dL (1.8-2.4); POTASSIUM 3.8 mmol/L (3.5-5.1)
--- NOTE | 2021-02-16 06:13 | NUR ---
PT C/O CURTIS. MEDICATED WITH 2 TYLENOL. NO S/S SOA. VSS AFEBRILE 97% ON RA.
[2021-02-16 07:26] VITALS: BP 130/64
--- NOTE | 2021-02-16 11:04 | EKG ---
[place] [address] [employer] [place] [address] ELECTROCARDIOGRAM REPORT Name: LASHANDA PATEL Room #: 349-I ADM IN .R.#: [id number] Admission: 02/15/21 Attend Phys: Jc Lacy Discharge: Date of : 40 Report #: [id number] [facility] ED Test Date: 2021-02-14 Test Time: 22:08:19 Pat Name: LASHANDA PATEL Department: Room: [facility] Gender: F Presser All Around: ronda : 1940 Requested By: Ren Reece Order Number: [id number] MD: Michelet Sam Measurements Intervals [place] Rate: 70 P: -12 NM: 139 QRS: 20 QRSD: 78 T: 61 QT: 453 QTc: 489 Interpretive Statements Sinus rhythm Minimal ST depression, lateral leads Borderline prolonged QT interval Compared to ECG 12/02/2020 15:03:13 No significant changes Electronically Signed On 02-16-2021 11:03:47 CDT by Michelet Sam [email or web address] <ELECTRONICALLY SIGNED> By: Michelet Sam MD 02/16/21 1103 07 07 Michelet Sam MD /RALPH
[2021-02-16 15:18] VITALS: BP 122/61
--- NOTE | 2021-02-16 18:03 | NUR ---
PATIENT ALERT ORIENTED X4. PLEASANT WITH CARES. SHE DENIES ANY PAIN AT THIS TIME. REQUESTED XANAX FOR ANXIETY STATING AFTER TALKING TO MY SON I FELT LIKE I NEED A XANAX. CONT ON ABT AND MG REPLACED. SHE TRANSFERS REALLY WELL TO BEDSIDE COMMODE WITH MINIMAL ASSIST NOTED.. WILL CONT WITH PLAN OF CARE.
[2021-02-16 19:23] VITALS: BP 122/60
[2021-02-17 03:28] VITALS: BP 115/58
--- NOTE | 2021-02-17 06:21 | NUR ---
PT PROGRESSING TOWARDS D/C GOALS . VSS. AFEBRILE. IV REPLACED. PT ANXIOUS TO GO HOME.
[2021-02-17 06:55] VITALS: BP 152/72
[2021-02-17 07:07] LABS: ALBUMIN 2.3 g/dL (3.4-5.0); CREATININE 0.8 mg/dL (0.6-1.0); MAGNESIUM 1.5 mg/dL (1.8-2.4); POTASSIUM 3.2 mmol/L (3.5-5.1); TOTAL BILIRUBIN 0.6 mg/dL (0.2-1.0); TOTAL PROTEIN 5.7 g/dL (6.4-8.2)
[2021-02-17] MEDS ORDERED: CEFUROXIME500 MG PO (09:13)
[2021-02-17] MEDS ORDERED: ELIQUIS5 MG PO (09:14)
[2021-02-17 12:04] VITALS: BP 152/72
--- NOTE | 2021-02-17 13:07 | NUR ---
INITIAL ASSESSMENT/DISCHARGE NOTE: Received consult. DOMITILA reviewed chart and spoke with nursing and attending physician. Pt was admitted from home due to AMS/UTI. Pt is medically stable to discharge home today following last dose of IV abx. DOMITILA met with pt at bedside. Introduced role of SW. Pt is alert/orientated x 4. Pt reports she lives alone in an apt [facility]. Pt has a ground level apt. Pt has a walker to use if needed. Pt has used [facility] in the past. No hx of post-acute placement. Pt's PCP is Dr. Stella Velásquez. SW discussed discharge needs. Pt states she has home health coming to see her several times per week for ostomy care. Pt unable to recall name of HH provider. Pt declines needing additonal care at home. Pt will need transportation home later today. Nursing to obtain cab voucher from manager of warehouse when pt is ready for discharge. No SW needs identified at this time, but is available to assist should needs arise.
--- NOTE | 2021-02-17 14:49 | NUR ---
ASSUMED PATIENT CARE AT 0700. A/O 3. ANXIOUS AND CONFUSED SOMETIMES. REFUSED TO HAVE HH. DISCHARGE EDUCATION GIVEN. SW HELPED WITH HOME MEDS. PATIENT LEFT AT 1450.
--- NOTE | 2021-02-17 16:09 | NUR ---
ORDERS RECEIVED FOR PT EVAL AND TREAT FOR DEBILITY. Pt ADMITTED FOR AMS, UTI, AND R LE SUPERFICIAL FEMORAL VEIN THROMBUS. Pt ON ANTICOAGULATION PRIOR TO INITIATING PT EVALUATION. AO*4. LIVES ALONE IN FIRST FLOOR APT. DOESN'T USE AD BUT HAS A WALKER. REPORTED HER SON WAS COMING IN TOWN TO 'TAKE OVER EVERYTHING.' Pt HAS COLOSTOMY AND 2+ EDEMA IN BILAT LEs. Pt WAS UP IN BATHROOM UPON PT ARRIVAL. OBSERVED WALKING IN ROOM W/O AD BUT SLOWLY. DESPITE Pt STATING THAT SHE WAS WEAK AND NOT WALKING WELL, Pt REFUSING PT STATING 'DON'T TRY TO SELL ME ANYTHING' AND 'I'M GOING HOME.' Pt VERY HYPERVERBAL AND W/ POOR EYE CONTACT. VERY SKEPTICAL/SUSPICIOUS OF THE FEW THINGS PT WAS ABLE TO SAY. POSSIBLE EARLY ONSET DEMENTIA PER EMR. Pt REFUSING PT EVALUATION AND CONTINUED TO STATE SHE WAS GOING HOME.
--- NOTE | 2021-02-19 14:09 | NUR ---
Note Given: Y Facility List Provided:Y Facility Lizzy: None chosen at this time Maria E Hunter NP discussed BPCI with this pt 02/17/2021
== END 2021-02-17 15:00 | disposition home or self-care (01) | DRG 193 ==
LOC: ER 21:48 → EROBS 02-15 00:42 → 3W 02-15 00:42
PROVIDERS: Emergency Medicine; Nurse Practitioner Family; ADMIT Hospitalist; ATTEND Hospitalist
DX: J18.9 Pneumonia, unspecified organism (principal); G92 Toxic encephalopathy; E43 Unspecified severe protein-calorie malnutrition; N39.0 Urinary tract infection, site not specified; I82.411 Acute embolism and thrombosis of right femoral vein; F41.9 Anxiety disorder, unspecified; M81.0 Age-related osteoporosis without current pathological fracture; I10 Essential (primary) hypertension; R53.81 Other malaise; E83.51 Hypocalcemia; E83.42 Hypomagnesemia; B96.20 Unspecified Escherichia coli [E. coli] as the cause of diseases classified elsewhere; K22.70 Barrett's esophagus without dysplasia; E53.8 Deficiency of other specified B group vitamins; R63.4 Abnormal weight loss; E78.5 Hyperlipidemia, unspecified; F03.90 Unspecified dementia, unspecified severity, without behavioral disturbance, psychotic disturbance, mood disturbance, and anxiety; Z93.3 Colostomy status; Z87.891 Personal history of nicotine dependence; Z82.49 Family history of ischemic heart disease and other diseases of the circulatory system; Z80.9 Family history of malignant neoplasm, unspecified; Z68.25 Body mass index [BMI] 25.0-25.9, adult; Z79.899 Other long term (current) drug therapy; Z20.822 Contact with and (suspected) exposure to COVID-19
CPT/HCPCS: 10879

== ENCOUNTER → 2021-06-05 | Outpatient (CLI) | payer OTHER ==
[~2021-06-05] MED LIST changes: +CEFUROXIME500 MG PO; +ELIQUIS5 MG PO
== END ==
LOC: SJCVCIMAG 09:27
PROVIDERS: ATTEND Nuclear Medicine Nuclear Cardiology
DX: I82.411 Acute embolism and thrombosis of right femoral vein (principal); M79.89 Other specified soft tissue disorders; I10 Essential (primary) hypertension; I73.9 Peripheral vascular disease, unspecified; M79.604 Pain in right leg; M79.605 Pain in left leg; J43.8 Other emphysema; R41.3 Other amnesia; K21.9 Gastro-esophageal reflux disease without esophagitis; E78.00 Pure hypercholesterolemia, unspecified; E78.5 Hyperlipidemia, unspecified; E55.9 Vitamin D deficiency, unspecified; Z88.8 Allergy status to other drugs, medicaments and biological substances; Z79.899 Other long term (current) drug therapy; Z87.891 Personal history of nicotine dependence; Z82.49 Family history of ischemic heart disease and other diseases of the circulatory system

== ENCOUNTER → 2021-09-03 | Outpatient (CLI) | payer OTHER | LOC: SJCVCIMAG 10:42 | PROVIDERS: ATTEND Nuclear Medicine Nuclear Cardiology | DX: M79.661 Pain in right lower leg (principal); M79.89 Other specified soft tissue disorders; I82.401 Acute embolism and thrombosis of unspecified deep veins of right lower extremity; I10 Essential (primary) hypertension; J43.8 Other emphysema; K21.9 Gastro-esophageal reflux disease without esophagitis; E78.00 Pure hypercholesterolemia, unspecified; E83.42 Hypomagnesemia; F33.9 Major depressive disorder, recurrent, unspecified; Z88.8 Allergy status to other drugs, medicaments and biological substances; Z79.82 Long term (current) use of aspirin; Z79.899 Other long term (current) drug therapy; Z72.89 Other problems related to lifestyle; Z87.891 Personal history of nicotine dependence ==

== ENCOUNTER → 2021-11-14 | Outpatient (CLI) | payer OTHER | LOC: RAD 11:59 | PROVIDERS: ATTEND Family Medicine | DX: M47.816 Spondylosis without myelopathy or radiculopathy, lumbar region (principal); M48.07 Spinal stenosis, lumbosacral region; M48.061 Spinal stenosis, lumbar region without neurogenic claudication; M43.16 Spondylolisthesis, lumbar region ==

== ENCOUNTER → 2021-11-19 | Outpatient (CLI) | payer OTHER | LOC: SJCVCIMAG 08:49 | PROVIDERS: ATTEND Nuclear Medicine Nuclear Cardiology | DX: I82.401 Acute embolism and thrombosis of unspecified deep veins of right lower extremity (principal); I10 Essential (primary) hypertension; E78.00 Pure hypercholesterolemia, unspecified; K22.70 Barrett's esophagus without dysplasia; J43.9 Emphysema, unspecified; K21.9 Gastro-esophageal reflux disease without esophagitis; J45.909 Unspecified asthma, uncomplicated; E78.5 Hyperlipidemia, unspecified; E83.42 Hypomagnesemia; F32.9 Major depressive disorder, single episode, unspecified; K44.9 Diaphragmatic hernia without obstruction or gangrene; E53.8 Deficiency of other specified B group vitamins; Z87.891 Personal history of nicotine dependence; Z72.89 Other problems related to lifestyle; Z79.82 Long term (current) use of aspirin; Z79.899 Other long term (current) drug therapy ==